=== PATIENT | female | born 1960 | race Caucasian/White ===

== ENCOUNTER → 2023-09-12 07:31 | Outpatient (REF) | payer BC, SELFPAY | LOC: RAD 07:31 | PROVIDERS: ATTENDING PHYSICIAN Internal Medicine Cardiovascular Disease; FAMILY PHYSICIAN Internal Medicine; REFERRING PHYSICIAN Family Medicine | DX: I10 Essential (primary) hypertension (principal); R60.9 Edema, unspecified; R06.00 Dyspnea, unspecified | CPT/HCPCS: 71046 ==

== ENCOUNTER → 2023-12-24 11:00 | Outpatient (REF) | payer BC, SELFPAY | LOC: RCS 11:00 | PROVIDERS: ATTENDING PHYSICIAN Internal Medicine Cardiovascular Disease; FAMILY PHYSICIAN Internal Medicine; REFERRING PHYSICIAN Pediatrics | DX: I50.32 Chronic diastolic (congestive) heart failure (principal); R06.02 Shortness of breath; R06.09 Other forms of dyspnea; R07.1 Chest pain on breathing | CPT/HCPCS: 71046; 93306 ==

== ENCOUNTER → 2023-12-26 13:59 | Outpatient (REF) | payer BC, SELFPAY | LOC: HWRAD 13:59 | PROVIDERS: ATTENDING PHYSICIAN Internal Medicine Critical Care Medicine; FAMILY PHYSICIAN Family Medicine | DX: R05.1 Acute cough (principal) | CPT/HCPCS: 71250 ==

== ENCOUNTER → 2024-10-12 18:48 | Outpatient (REF) | payer MEDICARE, SELFPAY | LOC: MRI 3T 18:48 | PROVIDERS: ATTENDING PHYSICIAN Psychiatry & Neurology Neurology; FAMILY PHYSICIAN Internal Medicine | DX: G43.E09 Chronic migraine with aura, not intractable, without status migrainosus (principal) | CPT/HCPCS: 70553; A9575 ==

== ENCOUNTER 2024-11-25 20:21 | Observation (INO) | payer MEDICARE, SELFPAY ==
[2024-11-25 14:15] VITALS: BP 153/88
[2024-11-25 14:40] LABS: % Basophils 0.6 % (0-2); % Immature Granulocytes 0.7 % (0-0.5); % Lymphocytes 27.3 % (20.5-51.1); % Monocytes 12.3 % (1.7-9.3); % Neutrophils 59.1 % (42.2-75.2); Absolute Immature Granulocytes 0.1 10^3/uL (0-0.05); Absolute Monocytes 0.9 10^3/uL (0.1-0.6); Absolute Neutrophils 4.2 10^3/uL (1.4-6.5); Hematocrit 40.8 % (37.0-47.0); Mean Corp Hgb Conc. 34.3 g/dL (33.0-37.0); Mean Corpuscular Volume 84.6 fL (81.0-99.0); Mean Platelet Volume 9.6 fL (7.4-10.4); Nucleated Red Blood Cells % 0 %; Platelet Count 346 10^3/uL (130-400); Red Blood Cell Count 4.82 10^6/uL (4.20-5.40); Red Cell Dist. Width 12.8 % (11.5-14.5); White Blood Cell Count 7.2 10^3/uL (4.8-10.8)
[2024-11-25 14:50] LABS: ALT (SGPT) 23 U/L (0-35); AST (SGOT) 27 U/L (14-36); Albumin 5.1 g/dl (3.5-5.0); Alkaline Phosphatase 65 U/L (38-126); Blood Urea Nitrogen 11 mg/dl (7-17); Calcium 9.8 mg/dl (8.4-10.2); Carbon Dioxide 31 mmol/L (22-30); Chloride 102 mmol/L (98-107); Glucose 96 mg/dl (70-99); Sodium 142 mmol/L (135-145); Total Bilirubin 0.5 mg/dl (0.2-1.3); Total Protein 7.4 g/dl (6.3-8.2); eGFR > 60.00
[2024-11-25 15:01] LABS: Troponin I < 0.012 ng/ml
--- NOTE | 2024-11-25 17:57 | ED.GENMED ---
History of Present Illness
General
Chief Complaint: Headache
Source: patient
Exam Limitations: none
Time Seen by Provider: 11/25/24 17:31
History of Present Illness
History of Present Illness:
64yoF with a history of hypertension, prior NSTEMI, and asthma presenting for evaluation of a headache and dizziness x 3 days. Patient reports intermittent headache for the past several days. Pain is located in the center of her head and is
currently rated as a 6/10 in severity. She also reports dizziness which she describes as feeling off balance when she is standing/walking. She fell into the wall earlier today. She is experiencing associated photophobia and is having a hard time
remembering things. Additionally, she is having some word finding difficulty. She hears a 'whooshing' sensation in her ears if she leans forward. Patient was seen by her neurologist today and was sent to the ED for evaluation. Patient had an MRI
in September 2024 which showed findings related to small vessel ischemic disease/age. She is scheduled to have an MRA in 2 weeks. Patient has a remote history of migraines many years ago which were related to her menstrual cycles. She has not had a
migraine in 35 years. 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
Past History
Past History
ED Past Medical History: CAD, HTN, Other (Interstitial lung disease), Other (Kidney stones) and Other (Rheumatoid arthritis)
ED Past Surgical History: Orthopedic
Social History
Tobacco: Non-smoker
Alcohol: Occasional
Drug: None
Personal:
Living: with family
Employment: Employed
Family History
Family History: Other (Father with interstitial lung disease)
Phy Exam
Physical Exam
Physical Exam:
Sitting in a dark room with sunglasses on
General Physical Exam
General Presentation: well appearing
General Skin: warm and dry
General Habitus: normal
General Mental: alert
Eye Exam
Eye Exam: PERRL, EOMI and conjunctiva normal
Cardiovascular Exam
Cardiovascular Exam: regular rate/rhythm
Pulmonary Exam
Pulmonary Exam: lungs clear, no respiratory distress, no rales, no crackles and no rhonchi
Neurological Exam
Neurological Exam: alert, CN II-XII intact and other (Intermittent issues findings her words during exam. Patient falling to the R with standing and gait ataxia noted.)
Slim Coma Scale
Eye Opening: Spontaneous
Verbal Response: Oriented
Motor Response: Obeys Commands
GCS Total Score: 15
Skin Exam
Skin Exam: normal color and warm/dry
Psychiatric Exam
Psychiatric Exam: normal mood/affect
Course
Orders/Labs/Results
Orders:
Orders
11/25/24 14:21
Electrocardiogram (*1) Urgent
Reason for Study: Chest Pain
11/25/24 14:22
EKG- Treatment ONCE
11/25/24 14:29
C-Reactive Protein Urgent
Comment: ADD ON
Complete Blood Count/With Diff Urgent
Comprehensive Metabolic Panel Urgent
Erythrocyte Sed Rate Urgent
Comment: ADD ON
Troponin I Urgent
11/25/24 17:52
CT Head & Neck Angio W/wo IV Urgent
Comment:
Reason For Exam: dizziness, SHIELDS
11/25/24 17:54
Add On- LAB Urgent
Tests Added?: ESR/CRP
11/25/24 17:55
0.9% Sodium Chloride 500 ml [Nss] 500 ml IV BOLUS
Dexamethasone Sod Phosphate [Decadron] 10 mg IV NOW STA
Diphenhydramine [Benadryl] 25 mg IV NOW STA
Magnesium Sulfate 2 Gram/50 ml [Magnesium Sulfate] 2 gram in 50 ml IV NOW
Metoclopramide [Reglan] 10 mg IV NOW STA
11/25/24 19:59
Admit/Transfer Patient As Directed
Co-Sign Provider:
Level of Care: Observation services
Assign to:: Telemetry
Physician / Group: [facility]
Diagnosis: cva
Reason for Telemetry: CVA/TIA
Date to Stop Telemetry: 11/28/24
Time to Stop Telemetry: 11:00
PRN Pain Medication Management As Directed
May give lesser potent ordered pain med per pt: Yes
preference::
Protocol:: Medication orders for pain may be administered in a
manner that supports deferring to patient preference
when the pt is:
- Requesting an ordered lesser potent pain medication.
Least to most potent pain medications are defined
as: acetaminophen < NSAID < tramadol < opioids
(morphine, oxycodone, hydromorphone).
- Requesting a lesser dose of the same medication IF
ORDERED.
- Requesting a less intrusive route of administration
if both routes are prescribed by the provider (PO <
IV).
11/25/24 20:01
Code Status As Directed
Resuscitation Status: Full Code
11/25/24 20:13
Aspirin Chewable [Low Strength Aspirin] 81 mg PO NOW STA
11/28/24 11:00
DC Protocol for Telemetry ONCE
Abnormal Lab Results
11/25/24
14:29
Abs Immat Gran (auto) 0.1 H 10^3/uL
(0-0.05)
Absolute Monos (auto) 0.9 H 10^3/uL
(0.1-0.6)
Immature Gran % 0.7 H %
(0-0.5)
Monocytes % 12.3 H %
(1.7-9.3)
Carbon Dioxide 31 H mmol/L
(22-30)
Albumin 5.1 H g/dl
(3.5-5.0)
11/25/24 14:29
11/25/24 14:29
Vital Signs
Initial and Last Documented VS:
Initial Vital Signs
Temp Pulse Resp BP Pulse Ox
97.7 F 88 16 153/88 100
11/25/24 14:15 11/25/24 14:15 11/25/24 14:15 11/25/24 14:15 11/25/24 14:15
Last Documented Vital Signs
Temp Pulse Resp BP Pulse Ox
97.7 F 88 18 153/88 100
11/25/24 14:15 11/25/24 14:15 11/25/24 18:51 11/25/24 14:15 11/25/24 14:15
MDM/Problems Addressed
Differential Diagnosis Includes:
64yoF here with SHIELDS and dizziness x 3 days. Also c/o word finding and memory issues. Sent in by her neurologist. She is mildly hypertensive with otherwise stable vitals. She is sitting in a dark room on exam. Ataxia noted with gait testing.
Differential diagnosis includes but is not limited to: CVA, complex migraine, temporal arteritis, less likely but consider subarachnoid hemorrhage
Initial EKG: Cardiac labs and EKG obtained in triage. Labs unremarkable including normal troponin and EKG shows normal sinus rhythm without ischemic changes. Will add on ESR/CRP and CTA head/neck. IV migraine cocktail and reassess. Patient out of
window for TNK consideration.
*EKG
Interpreted by ED Provider?: Yes
EKG Intrepretation Date: 11/25/24
Heart Rate: 71
Rate: normal
Rhythm: sinus
[place]: normal axis
Interval: normal interval
QRS Pattern: normal QRS
Ischemia: no ischemia
*Critical Care Note
Total Time (30-74mins, 75-104mins- exclusive of procedures): Not Applicable
Update Note
Update Note:
Both ESR and CRP are normal. CTA is negative for acute findings. Unclear etiology of symptoms. Given new neurologic findings, will admit for further evaluation.
ED Attending Note
-
Portions of this chart may have been created with voice recognition software.� Occasional wrong word or��sound alike� substitutions may have occurred due to the inherent limitations of voice recognition software.
Discharge Plan
Departure
Patient Disposition: Admit
Date of Disposition: 11/25/24
Time of Disposition: 19:41
Presentation/result/management discussed w/ accepting MD/DO: Hospitalist
Discharge Problem:
Acute headache, Dizziness, Word finding difficulty, Gait instability
Prescriptions:
No Action
montelukast 10 MG tablet
10 mg PO DAILY
atorvastatin [Lipitor] 10 mg Tablet
10 mg PO DAILY
famotidine [Pepcid] 40 mg Tablet
40 mg PO BID
venlafaxine [Effexor XR] 150 mg Capsule,Extended Release 24hr
150 mg PO DAILY
furosemide [Lasix] 20 mg Tablet
40 mg PO DAILY
valsartan 160 mg Tablet
240 mg PO DAILY
Ozempic 1 mg/dose (4 mg/3 mL) Pen Injector
1 mg SC SA
metformin 500 mg Tablet Extended Release 24 Hr
500 mg PO BID
Referrals:
UNKNOWN,NO INTERVIEW [Family Provider] -
Interventions
Interventions:
*Risk Screen - Suicide Last Done: 11/25/24 14:15
*General Assessment Last Done: 11/25/24 14:15
*Neglect/Abuse Screening Last Done: 11/25/24 14:15
*ED- Fall Risk Assessment Last Done: 11/25/24 18:04
*ED COVID-19 Vaccine History Last Done: 11/25/24 14:15
ED- Neurological Assessment Last Done: 11/25/24 18:02
Discharge Date and Time
Print Language: WELSH
[2024-11-25 18:32] LABS: Erythrocyte Sed Rate 10 mm/hour (0-20)
[2024-11-25] MEDS: DECADRON 10 MG IV (18:36)
[2024-11-25] MEDS: NSS 500 IV (18:36)
[2024-11-25 18:39] LABS: C-Reactive Protein < 5.00 mg/L (0.0-10.00)
[2024-11-25] MEDS: REGLAN 10 MG IV (18:42)
[2024-11-25] MEDS: BENADRYL 25 MG IV (18:42)
[2024-11-25] MEDS: MAGNESIUM SULFATE 50 IV (18:45)
--- NOTE | 2024-11-25 19:43 | HPS.HSE ---
Family Physician
-
Family Physician: NO INTERVIEW UNKNOWN
Chief Complaint
-
Headache
History of Present Illness
64-year-old with past medical history of a coronary artery disease, hypertension, interstitial lung disease, kidney stones, rheumatoid arthritis presented to us with headache and dizziness for 3 days. it happens with eye movement or any head
movement. denied spinning sensation. stated nausea. she complained off balance. denied fever, chills, chest pain, sob. denied abdominal pain,diarrhea. denied dysuria or hematuria.
CTA negative. admitting for further management.
Medical History
Past Medical History
Past Medical History: Reports Other
Additional Past Medical History:
Hyperlipidemia, hypertension, NSTEMI, nephrolithiasis, generalized edema, diastolic heart failure, autoimmune disease,
Past Surgical History: Reports Other
Additional Past Surgical History:
Lumbar laminectomy, L4-L5 discectomy, cystoscopy and stone retrieval, left lumpectomy, for surgery
Social History
Tobacco: Non-smoker
Alcohol: None
Drug: None
Personal:
Living: With Family
Family History
Family History: Not pertinent
Allergies / Home Medications
Allergies reflects when Allergies were last updated in [facility].
Home Medications with original date entered in [facility]
Allergy/Medication List:
Allergies
Allergy/AdvReac Type Severity Reaction Status Date / Time
azathioprine [From Imuran] Allergy 'can't Verified 11/25/24 14:21
swallow'
hives
codeine Allergy Itching Verified 11/25/24 14:21
fentanyl Allergy Rash Verified 11/25/24 14:21
morphine Allergy Itching, Verified 11/25/24 14:21
rash
Opioids - Morphine Analogues Allergy Itching Verified 11/25/24 14:21
Home Medications
montelukast 10 mg tablet 10 mg PO QPM 03/10/20
Review of Systems
-
Constitutional: Reports No Symptoms
EENT: Reports No Symptoms
Respiratory: Reports No Symptoms
Cardiac: Reports No Symptoms
Abdomen/GI: Reports No Symptoms
: Reports No Symptoms
Musculoskeletal: Reports No Symptoms
Skin: Reports No Symptoms
Neurological: Reports Dizzy and Headache
Endocrine: Reports No Symptoms
Hematologic/Lymphatic: Reports No Symptoms
Psych: Reports No Symptoms
Physical Exam
Vital Signs
Vital Signs
Temp Pulse Resp BP Pulse Ox
97.7 F 88 18 153/88 100
11/25/24 14:15 11/25/24 14:15 11/25/24 18:51 11/25/24 14:15 11/25/24 14:15
Physical Exam
General: Well Developed, Well Nourished and No Apparent Distress
HEENT: NormoCephalic, Moist mucous membranes and Atraumatic
Respiratory: Clear
Cardiac: S1/S2 and Regular Rhythm; No Murmur or Rub
GI: Soft, Non Tender, Non Distended and Normal Bowel Sounds; No Organomegaly
Rectal: Deferred by Provider
Musculoskeletal: No Clubbing, No Cyanosis and No Edema
Skin: No Rash
Neuro: AO x 3 and Nonfocal/grossly intact
Psych: Calm
Laboratory Results
-
11/25/24 14:29
11/25/24 14:29
Laboratory Results
Total Bilirubin 0.5 mg/dl (0.2-1.3) 11/25/24 14:29
AST 27 U/L (14-36) 11/25/24 14:29
ALT 23 U/L (0-35) 11/25/24 14:29
Alkaline Phosphatase 65 U/L (38-126) 11/25/24 14:29
Troponin I < 0.012 ng/ml 11/25/24 14:29
Data Reviewed
-
CT Scan: Report Reviewed by me
Lab Data: Labs Reviewed by me
Impression/Plan
-
# Headache associate with dizziness/ /BPPV
- CTA head and neck negative for acute findings
- Obtain MRI
- Patient received dose of Decadron, Benadryl, magnesium, Reglan, in the ER
-will give a dose of asa, continued asa and statin
-PT/OT
-neurology consult
-neurocheck
# History of asthma
- Patient not in acute exacerbation
- Singulair continued
# Hyperlipidemia
-Statin continued
# History of CHF
- Patient not in acute exacerbation
- Strict MATTHEW, daily weight
- Lasix continued
# Type 2 diabetes
- Sliding scale
CHO diet
- Hold metformin
# History of NSTEMI
#essential htn
-valsartan continued
#anxiety
-Effexor continued
# DVT prophylaxis
- SCDs
# CODE STATUS
- Full code
[2024-11-25 20:00] VITALS: BP 128/56
--- NOTE | 2024-11-25 20:24 | W.PN.UPDATE ---
Update Note
Progress Note Update
Patient seen in conjunction with ARNALDO. I agree with the findings and physical. I concur with assessment and plan.
Briefly, this is a 64-year-old female with past medical history significant for sne-wwlbzgs-irgaxjltb diabetes, hypertension, hyperlipidemia, eosinophilic asthma who presents to the emergency department with 3 days of headache dizziness and double
vision as well as intermittent word finding difficulties and memory lapses.
Patient reported that she had a knee injection (no steroids) and soon afterwards started having the symptoms. She reports central headache in her head. She reports dizziness when she moves her eye on a horizontal gaze. She also reports
intermittent memory lapses and some word finding difficulties but no aphasia. There was no facial droop. She denies any new focal weaknesses. She denies any numbness or tingling. She reports that when she walks due to the dizziness she
occasionally stumbles. She denies any neck pain. She denies fevers chills. She denies any rash. Patient was seen a few weeks ago in October by neurology for eye twitching that was thought to be secondary to Dupixent due to dry eyes. She had an
MRI at that time which showed no acute focal changes. She has not been on any new medications since then. She saw her neurologist again today who referred to the emergency department ostensibly to be evaluated for possibility of temporal
arteritis. She reports a remote history of migraine headaches many years ago prior to childbirth that was treated with Imitrex as needed.
In the emergency department she was afebrile, blood pressure was 152/60 with a pulse of 58 and she was satting 100% on room air. CBC was unremarkable. Electrolytes BUN/creatinine were normal. ESR was negative. CRP was negative.
CT scan of the head shows no acute bleed or stroke or mass effect. CT angio shows no large vessel occlusion, aneurysm or focal stenosis.
On my examination the patient has NIHSS equals 0.
Assessment and plan
3 days of headache with dizziness and double vision, stable and unchanging, prior history of migraine headaches, prior history of hypertension and nhh-dmrlkiy-ozatgrgcx diabetes. NIHSS equals 0. CT scan negative. Inflammatory markers negative.
Unlikely this is temporal arteritis. Will admit for evaluation of subacute stroke.
- Admit to telemetry observation
- Start aspirin daily
- Continue statin
- MRI brain in a.m.
- Echo
-As needed Tylenol, as needed meclizine
- Lipid panel and A1c
- Neurology consultation
Home diabetes management
- Holding metformin
- Sliding scale insulin
Hypertension
- Continue valsartan, furosemide
DVTPPX - lovenox sq
Code status - full code
[2024-11-25] MEDS: LOW STRENGTH ASPIRIN 81 MG PO (20:26)
[2024-11-25 21:00] VITALS: BP 124/67
[2024-11-25 21:42] VITALS: BP 125/86; BMI 26.2
[2024-11-25 22:09] LABS: Glucose - Point of Care 108 mg/dl (70-99)
[2024-11-25] MEDS: PEPCID 20 MG PO (23:04)
[2024-11-25 23:42] VITALS: BP 136/75
[2024-11-26] MEDS: TYLENOL 650 MG PO ×2 (00:08→08:34)
[2024-11-26] MEDS: ATARAX 10 MG PO (01:28)
[2024-11-26 03:55] VITALS: BP 110/65
[2024-11-26 06:00] VITALS: BMI 26.2
[2024-11-26 07:45] VITALS: BP 122/71
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
[2024-11-26] MEDS: DIOVAN 240 MG PO (08:35)
[2024-11-26] MEDS: LIPITOR 10 MG PO (08:36)
[2024-11-26] MEDS: LOW STRENGTH ASPIRIN 81 MG PO (08:37)
[2024-11-26] MEDS: SINGULAIR 10 MG PO (08:37)
[2024-11-26] MEDS: EFFEXOR XR 150 MG PO (08:37)
[2024-11-26 08:52] LABS: HDL Cholesterol 90 mg/dl; LDL Cholesterol, Calculated 70 mg/dl; Total Cholesterol 169 mg/dl (50-199); Triglyceride 45 mg/dl (10-149); Very Low Density Lipoprotein 9 mg/dl (0-30)
--- NOTE | 2024-11-26 08:55 | PTOTSP ---
Speech Language Pathology
Pt seen for speech/language evaluations. Pt reported intermittent difficulty getting mouth to shape sounds for a word she is trying to say. This was noted x3 during 30 minute evaluation, and she was able to verbalize word correctly each time after
1-2 attempts. Suspect an apraxia of speech. Language evaluated via the Quick Aphasia Battery (QAB), form 1. Pt with an overall score of 9.37, indicative of overall skills WNL.
Pt also seen for clinical bedside swallow evaluation. Seen with breakfast tray of regular solids and thin liquids. Adequate mastication, bolus formation, and A-P transit noted with no oral residue. No overt signs of aspiration. She reported
occasional inability to swallow cold liquids, never having issues with warm liquids or solids. No difficulty noted during evaluation, but discussed potential for esophageal etiology. Pt stated she had a significant esophageal spasm in the past.
Question if this is what pt is noting. Not concerned for oropharyngeal dysphagia based on current presentation.
Recommend:
(1) Continue regular solids/thin liquids
(2) General aspiration precautions
(3) Meds as tolerated
(4) FISH ICER to continue to follow
[2024-11-26 08:56] LABS: Glucose - Point of Care 96 mg/dl (70-99)
[2024-11-26 09:42] LABS: D-Dimer < 0.27 ug/mlFEU (0.00-0.50)
[2024-11-26 10:30] VITALS: BP 147/86; PULSE 86
[2024-11-26 11:00] LABS: Magnesium 2.3 mg/dl (1.6-2.3)
[2024-11-26 11:35] VITALS: BP 149/85
[2024-11-26 12:18] LABS: Glycohemoglobin (HgbA1c) 5.8 % (4.0-5.6)
[2024-11-26 12:44] LABS: Glucose - Point of Care 81 mg/dl (70-99)
[2024-11-26 16:01] VITALS: BP 130/83
--- NOTE | 2024-11-26 16:01 | CM ---
Met with patient to obtain information for assessment. Patient stated that he lives with her spouse in a two story house with two steps to enter. She is independent with her ADLs, personal care, dressing and bathing. She can do doll wigs hackler,
laundry, cook and clean. She has a CPAP but no other DME in her home. She drives and can get to all of her appointments and does her own shopping. She has never had VN. She has never been to a SNF.
OBS letter signed, reviewed and is on chart.
Plan: Case management will continue to follow and assist with discharge planning. Home.
[2024-11-26 16:46] LABS: Glucose - Point of Care 137 mg/dl (70-99)
[2024-11-26 17:21] LABS: C-Reactive Protein < 5.00 mg/L (0.0-10.00)
[2024-11-26 17:52] LABS: TSH Reflex To Free T4 0.46 uIU/ml (0.47-4.68)
[2024-11-26 18:21] LABS: Free T4 1.11 ng/dl (0.78-2.19)
[2024-11-29 13:52] LABS: Lyme Antibody Screen, EIA Negative (Negative)
== END 2024-11-26 18:23 | disposition home or self-care (01) ==
LOC: 4 EAST ACU 20:21
PROVIDERS: Emergency Medicine; Registered Nurse; ADMITTING PHYSICIAN Internal Medicine; ATTENDING PHYSICIAN Hospitalist; CONSULT PHYSICIAN Psychiatry & Neurology Neurology; EMERGENCY PHYSICIAN Emergency Medicine
DX: G43.901 Migraine, unspecified, not intractable, with status migrainosus (principal); Z79.82 Long term (current) use of aspirin; G93.5 Compression of brain; E78.5 Hyperlipidemia, unspecified; E11.9 Type 2 diabetes mellitus without complications; I11.0 Hypertensive heart disease with heart failure; N20.0 Calculus of kidney; M81.0 Age-related osteoporosis without current pathological fracture; F41.9 Anxiety disorder, unspecified; E53.8 Deficiency of other specified B group vitamins; G47.33 Obstructive sleep apnea (adult) (pediatric); H81.10 Benign paroxysmal vertigo, unspecified ear; H93.A1 Pulsatile tinnitus, right ear; I25.10 Atherosclerotic heart disease of native coronary artery without angina pectoris; I25.2 Old myocardial infarction; I50.32 Chronic diastolic (congestive) heart failure; I67.82 Cerebral ischemia; J45.909 Unspecified asthma, uncomplicated; M06.9 Rheumatoid arthritis, unspecified; M25.78 Osteophyte, vertebrae; M47.12 Other spondylosis with myelopathy, cervical region; M48.02 Spinal stenosis, cervical region; M50.021 Cervical disc disorder at C4-C5 level with myelopathy; Z79.899 Other long term (current) drug therapy; Z87.442 Personal history of urinary calculi
CPT/HCPCS: 70496; 70498; 70551; 80053; 80061; 82962; 83036; 83735; 84439; 84443; 84484; 85025; 85379; 85652; 86140; 86618; 92523; 92610; 93005; 96365; 96375; 97162; 97165; 99285; G0378; Q9967

== ENCOUNTER → 2024-12-27 12:52 | Outpatient (REF) | payer MEDICARE, SELFPAY ==
[2024-12-27 15:56] LABS: Urine Albumin Negative (Neg - Trace); Urine Bilirubin Negative (Negative); Urine Character Clear (Clear); Urine Glucose Negative (Negative); Urine Ketone Negative (Negative); Urine Leukocyte Negative (Negative); Urine Nitrite Negative (Negative); Urine Occult Blood 1+ (Negative); Urine Urobilinogen Negative (Neg - 1+)
[2024-12-27 16:06] LABS: Urine Color Straw
[2024-12-27 16:33] LABS: Urine Red Blood Cell 0-2 /HPF (0-2); Urine Squamous Cell 0-2 /LPF (Few); Urine White Cell 0-2 /HPF (0-5)
== END ==
LOC: HWRAD 12:52
PROVIDERS: ATTENDING PHYSICIAN Specialist; FAMILY PHYSICIAN Internal Medicine
DX: N20.0 Calculus of kidney (principal)
CPT/HCPCS: 74176; 81003; 81015

== ENCOUNTER → 2025-05-10 09:46 | Outpatient (REF) | payer MEDICARE, SELFPAY | LOC: PAVMRI 09:46 | PROVIDERS: ATTENDING PHYSICIAN Psychiatry & Neurology Neurology; FAMILY PHYSICIAN Internal Medicine | DX: M54.16 Radiculopathy, lumbar region (principal) | CPT/HCPCS: 72158; A9575 ==